=== PATIENT | female | born 1970 | race Caucasian/White ===

== ENCOUNTER 2016-02-15 14:59 | Emergency (ER) | payer MEDICAID ==
[~2016-02-15] VITALS: Ht 157.5 cm; Wt 69.5 kg
[~2016-02-15 14:59] MED LIST: AMO500 PO; D-ME118S6 PO; PHEN-530 PO
[2016-02-15 15:42] VITALS: Ht 157.5 cm; Wt 69.5 kg
--- NOTE | 2016-02-15 16:40 | ERD ---
ER Documentation Chief Complaint Date/Time DATE: 02/15/16 Chief Complaint Ear pain HPI The patient is a 45-year-old female who presents to the Emergency Department with complaint of bilateral ear pain. She reports that her symptoms began 2.5 weeks ago, with onset of right-sided ear pain, mild rhinorrhea, body aches, subjective tactile fevers, sore throat and increased eye lacrimation. Since, her fevers, body aches and sore throat have improved. However, she continues to experience right-sided ear pain, rhinorrhea and increased eye lacrimation. Two days ago, the patient also developed left ear pain. She denies any cough. Denies otorrhea or bloody discharge. Denies any pain to the external ear. Denies any large water exposure. Denies any change in hearing or dizziness. Denies neck pain/neck stiffness. Denies new rashes. Denies any sick contacts. The patient does state that she has had similar symptoms in the past, which resolved after taking antibiotics. ROS All systems reviewed and are negative except as per history of present illness. Medications Home Meds Active Scripts Loratadine* (Loratadine*) 10 Mg Tablet, 10 MG PO DAILY, #30 TAB Prov:ESTELA BOWEN PA-C 02/15/16 Ibuprofen* (Motrin*) 600 Mg Tab, 600 MG PO Q6, #30 TAB Prov:ESTELA BOWEN PA-C 02/15/16 Amoxicillin* (Amoxicillin*) 500 Mg Cap, 500 MG PO BID, #20 CAP Prov:ESTELA BOWEN PA-C 02/15/16 Amoxicillin* (Amoxicillin*) 500 Mg Cap, 500 MG PO TID for 7 Days, CAP Prov:JANE AGUILAR PA-C 12/27/15 Phenylephrine/Dm/Acetaminop/GG (Sudafed PE Pressure+Pain+Cold) 1 Each Tablet, 1 EACH PO BID, #10 TAB Prov:DAXA KIRK NP 01/18/15 Dextromethorphan Hb-Promethazine Hcl (Promethazine DM Syrup) 180 Ml Syrup, 5 ML PO Q6H Y for COUGH, #4 OZ Prov:ADRIA GALVEZ 11/03/14 Allergies Allergies: Coded Allergies: No Known Allergy (Unverified , 12/27/15) PMhx/Soc Hx Alcohol Use: No Hx Substance Use: No Hx Tobacco Use: No Physical Exam Vitals Vital Signs Date Time Temp Pulse Resp B/P Pulse Ox O2 Delivery O2 Flow Rate FiO2 02/15/16 15:42 98.2 90 16 160/80 99 Physical Exam GENERAL: Well-developed, well-nourished, in no acute distress HEENT: Head is normocephalic, atraumatic. No scleral pallor or icterus. Pupils equal, round and reactive to light. Extraocular movements intact. Conjunctiva pink. Nares are patent bilaterally. Right tympanic membrane is erythematous, with dulling of the light reflex, and mildly bulging. Left tympanic membrane is clear, with dulling of the light reflex, but no significant erythema, no effusion. No tenderness to palpation or manipulation of the tragus or pinna. No foreign bodies. No mastoid or preauricular tenderness. No otorrhea or bloody discharge. Moist mucous membranes. No pharyngeal erythema or exudates. NECK: Supple. No masses, no tenderness, no lymphadenopathy. Full range of motion. No nuchal rigidity. RESPIRATORY: Lungs are clear to auscultation bilaterally. CARDIOVASCULAR: Regular rate and rhythm. S1 and S2 normal. EXTREMITIES: No clubbing, cyanosis, or edema. Distal pulses are palpable, 2+ bilaterally. Capillary refill is less than 2 seconds. MUSCULOSKELETAL: No injury or deformities. NEUROLOGIC: The patient is alert, awake, and oriented x 3. No focal neurologic deficits. Gait is observed and normal. INTEGUMENT: Skin is clean, dry and intact. PSYCHIATRIC: Appropriate; Cooperative. Procedures/MDM This is a 45-year-old female presenting to the Emergency Department with complaint of bilateral ear pain. On physical examination, the patients right tympanic membrane was erythematous and bulging. Left tympanic membrane was noted to have dulling of the light reflex, though with no erythema or effusion. She had no mastoid tenderness, no preauricular tenderness. Hearing is grossly intact. No otorrhea or bloody discharge. No tenderness to palpation or manipulation of tragus or pinna. No foreign bodies were noted. The differential diagnosis includes, but is not limited to, otitis media, otitis externa, ear foreign body, cerumen impaction, ruptured tympanic membrane, sinusitis, URI, tinnitus, mastoiditis, viral syndrome, cholesteatoma, auditory tube dysfunction, osteoma, referred pain, trauma, bullous myringitis, Tyronza- Dean syndrome. After rest, the patient has no new complaints. Upon my review and interpretation of the patient's presentation and overall ER course, I believe the patient's symptoms are most consistent with acute right otitis media, and left otalgia without evidence of infection. At this time, the patient is in stable condition and therefore can be discharged home with a prescription for Amoxicillin, ibuprofen and Loratadine, and strict return precautions for signs of deteriorating or worsening condition. The patient is instructed to follow up with her primary medical provider and an ENT specialist within 2-3 days for reevaluation and further management or to return to the ER sooner for any new or worsening symptoms. Given that the patient has had multiple ear infections over the past several years, ENT referrals were provided. I shared my medical decision making and plan with the patient at length and in great detail, and she verbally understands and agrees with the plan for further observation and care as an outpatient. At the time of discharge, all questions were answered. Departure Diagnosis: Primary Impression: Acute right otitis media Additional Impression: Otalgia of both ears Condition: Stable Patient Instructions: Anatomy of the Ear, Anatomy of the Inner Ear, Earache W/ O Infection (Adult), Otitis Media, Abx Tx (Adult) Referrals: BINDU CASTANON MD, STEPHEN H MD Additional Instructions: Follow up with your primary medical provider and an ENT specialist within 2-3 days for reevaluation and further management. Return to the ED sooner for any new or worsening symptoms. ESTELA BOWEN PA-C Feb 15, 2016 16:39
[2016-02-15] MEDS ORDERED: IBUP-1542 PO (16:43)
[2016-02-15] MEDS ORDERED: AMO500 PO (16:43)
[2016-02-15] MEDS ORDERED: LORA10TA3 PO (16:44)
== END 2016-02-16 09:28 | disposition home or self-care (01) ==
LOC: FTE 14:59 → E/R 02-16 09:28
DX: H66.91 Otitis media, unspecified, right ear (principal)
CPT/HCPCS: 99283

== ENCOUNTER 2016-04-03 09:59 | Emergency (ER) | payer MEDICAID ==
[~2016-04-03] VITALS: Wt 67.8 kg
[~2016-04-03 09:59] MED LIST changes: +IBUP-1542 PO; +LORA10TA3 PO
--- NOTE | 2016-04-03 11:59 | RADRPT ---
PROCEDURE: CT Brain without. CLINICAL INDICATION: Headache, left facial palsy. TECHNIQUE: A CT of the brain was performed on multidetector high-resolution CT scanner utilizing a xial sections from the skull base through the vertex without contrast. The scan was reviewed in sof t tissue brain and high frequency resolution bone algorithm windows. Images were reviewed on a high -resolution PACS workstation. One or more the following does reduction techniques were utilized: Aut omated exposure control, adjustment of the mA/ or kV according to patient's size, or use of iterativ e reconstruction technique. The exam CTDI and the DLP are not provided. COMPARISON: None available. FINDINGS: The ventricles and sulci are minimally prominent indicative of volume loss. There is no intracrania l hemorrhage, mass effect or midline shift. No abnormal intra-axial or extra-axial fluid collection s are seen. The oswald/white matter differentiation is preserved. Hyperostosis frontalis interna is no enzo. The visualized paranasal sinuses are essentially clear. IMPRESSION: 1. No acute intracranial hemorrhage, transcortical infarction or mass effect. Brain MRI can be obta ined if clinical concern persists. 2. Minimal generalized cerebral volume loss. RPTAT: HH .Eric Alvarado MD, Date Time Electronically viewed and signed by .Eric Alvarado MD, MD on 04/03/2016 11:58 .N/
[2016-04-03] MEDS ORDERED: DIPHENHYDRAMINE 50 MG INJ IV ONE (13:00)
[2016-04-03] MEDS ORDERED: SOD CHLORIDE 0.9% 1,000 ML IV ONE (13:00)
[2016-04-03] MEDS ORDERED: METOCLOPRAMIDE 10 MG INJ IV ONE (13:00)
--- NOTE | 2016-04-03 17:02 | RADRPT ---
PROCEDURE: MRI Brain without contrast. CLINICAL INDICATION: Headaches, left facial palsy TECHNIQUE: Multiplanar MRI of the brain without contrast was performed on a 3.0 T scanner with the following sequences obtained: T1-weighted, T2-weighted/FLAIR, diffusion weighted (with ADC map), GR E. COMPARISON: CT brain 04/03/2016 FINDINGS: No acute/recent ischemic infarction or intracranial hemorrhage / blood degradation products are iden tified. No extra-axial fluid collection is seen. There is no mass effect. No midline shift is identified. The ventricles and sulci are within normal limits for size and configuration. A few punctate foci of increased T2-weighted FLAIR signal intensity are identified in the deep white matter which are nonspecific, which may reflect chronic small vessel ischemic changes or possibly s equela of complicated migraines. There is a focal homogeneous intermediate T1-weighted, decreased T2-weighted signal intensity lesion in the left aspect of the sella which may extend slightly into the left suprasellar cistern measuri ng approximately 7 x 13 x 10 mm (AP x transverse x CC). No associated fluid fluid level is seen. Flow voids are identified in the proximal intracranial arteries and dural sinuses suggesting patency . The mastoid air cells and paranasal sinuses are grossly clear. IMPRESSION: 1. No evidence of acute intracranial pathology. 2. Minimal nonspecific white matter changes, which may reflect chronic small vessel ischemic change s, possibly sequela of complicated migraines. 3. 13 mm intermediate T1-weighted/decreased T2-weighted signal intensity lesion in the left sella w hich may extend slightly into the suprasellar cistern. Considerations include Rathke cleft cyst, le ss likely hemorrhagic pituitary adenoma, but further characterization could be performed with follow -up dedicated contrast-enhanced MRI of the pituitary. RPTAT: TT .Amari Del Rosario MD, MD Date Time Electronically viewed and signed by .Amari Del Rosario MD, MD on 04/03/2016 17:01 .O/
[2016-04-03 18:37] LABS: BASOPHIL # 0.1 10^3/ul (0.0-0.1); BASOPHILS % 0.8 % (0.0-2.0); EOSINOPHILS % 0.1 % (0.0-7.0); HEMATOCRIT 41.9 % (37.0-47.0); HEMOGLOBIN 14.2 g/dl (12.0-16.0); LYMPHOCYTES # 3.4 10^3/ul (0.8-2.9); LYMPHOCYTES % 21.8 % (15.0-51.0); MEAN CORPUSCULAR HEMOGLOBIN 31.3 pg (29.0-33.0); MEAN CORPUSCULAR HGB CONC 33.9 g/dl (32.0-37.0); MEAN CORPUSCULAR VOLUME 92.4 fl (82.0-101.0); MEAN PLATELET VOLUME 9.1 fl (7.4-10.4); MONOCYTE # 0.8 10^3/ul (0.3-0.9); MONOCYTES % 4.9 % (0.0-11.0); NEUTROPHIL # 11.2 10^3/ul (1.6-7.5); NEUTROPHILS % 72.4 % (39.0-77.0); PLATELET COUNT 246 10^3/UL (140-440); RED BLOOD COUNT 4.54 10^6/ul (4.20-5.40); UNCORRECTED WBC 15.4 10^3/ul (4.8-10.8); WHITE BLOOD COUNT 15.4 10^3/ul (4.8-10.8)
[2016-04-03 18:42] LABS: CONDITION 1
[2016-04-03 18:47] LABS: INR 0.99; PROTIME 13.1 Sec (12.2-14.2)
[2016-04-03 18:48] LABS: PARTIAL THROMBOPLASTIN TIME 22.7 Sec (25.0-35.0)
[2016-04-03 18:57] LABS: POTASSIUM 3.3 mmol/L (3.5-5.1)
[2016-04-03 18:59] LABS: CREATININE 0.7 mg/dl (0.44-1.00)
[2016-04-03 19:00] LABS: CALCIUM 8.7 mg/dl (8.4-10.2)
--- NOTE | 2016-04-03 19:47 | ERD ---
ER Documentation Chief Complaint Date/Time DATE: 04/03/16 TIME: 19:34 Chief Complaint non traumatic headache no fever since 5 days.L side facial palsy, on meds HPI A 45-year-old female with a past medical history of hypertension presents to the ED complaining of positional dizziness that led to a headache that started 5 days ago. States that she went to the [facility] and Dr. Bentley diagnosed patient with a left-sided Coffey's palsy. Patient reports that she has been taking acyclovir, methylprednisolone, diclofenac, artificial tears without relief of her symptoms. Reports that her headache is mainly in the frontal region and radiates to the back. Rates the pain a 8 out of 10. Describes it as achy. States that the pain is worse at night. Reports that the pain is exacerbated when she bends forward. Denies any facial pain. Denies any sinus pain. Denies any photophobia, blurred vision, photophobia, weakness, abdominal pain, nausea, vomiting, chest pain, shortness of breath. Reports that her last menses was on March 27, 2016. ROS All systems reviewed and are negative except as per history of present illness. Medications Home Meds Active Scripts Loratadine* (Loratadine*) 10 Mg Tablet, 10 MG PO DAILY, #30 TAB Prov:ESTELA BOWEN PA-C 02/15/16 Ibuprofen* (Motrin*) 600 Mg Tab, 600 MG PO Q6, #30 TAB Prov:ESTELA BOWEN PA-C 02/15/16 Amoxicillin* (Amoxicillin*) 500 Mg Cap, 500 MG PO BID, #20 CAP Prov:ESTELA BOWEN PA-C 02/15/16 Amoxicillin* (Amoxicillin*) 500 Mg Cap, 500 MG PO TID for 7 Days, CAP Prov:JANE AGUILAR PA-C 12/27/15 Phenylephrine/Dm/Acetaminop/GG (Sudafed PE Pressure+Pain+Cold) 1 Each Tablet, 1 EACH PO BID, #10 TAB Prov:DAXA KIRK NP 01/18/15 Dextromethorphan Hb-Promethazine Hcl (Promethazine DM Syrup) 180 Ml Syrup, 5 ML PO Q6H Y for COUGH, #4 OZ Prov:ADRIA GALVEZ 11/03/14 Allergies Allergies: Coded Allergies: No Known Allergy (Unverified , 12/27/15) PMhx/Soc History of Surgery: No Anesthesia Reaction: No Hx Neurological Disorder: No Hx Respiratory Disorders: No Hx Cardiac Disorders: No Hx Psychiatric Problems: No Hx Miscellaneous Medical Probl: Yes (HTN) Hx Alcohol Use: No Hx Substance Use: No Hx Tobacco Use: No Smoking Status: Never smoker Physical Exam Vitals Vital Signs Date Time Temp Pulse Resp B/P Pulse Ox O2 Delivery O2 Flow Rate FiO2 04/03/16 10:02 98.9 76 20 166/75 99 Physical Exam Const: Kna-vwj-fwhynjojv, well-nourished. In no acute distress. Head: Atraumatic, normocephalic Eyes: Normal Conjunctiva without injection. No purulent discharge. PERRLA. EOMI ENT: Normal external ear. Ear canal without erythema. Tympanic membrane pearly oswald without effusion or bulging. Nasal canal clear with normal turbinates. Moist oropharynx without tonsillar exudates. Non-erythematous pharynx. Uvula midline. No drooling. No trismus. Neck: No cervical midline tenderness. Full range of motion. No meningismus. No cervical lymphadenopathy. No JVD. Resp: Clear to auscultation bilaterally. No wheezing, rhonchi, rales, or crackles. No accessory muscle use. No retractions. Cardio: Regular rate and rhythm. No murmurs, rubs or gallops. Abd: Soft, non tender, non distended. Normal bowel sounds. No palpable masses. No rebound tenderness. No guarding. Negative McBurney's Point. Negative Harrell's Sign. Skin: Normal skin turgor. No petechiae or rashes Back: No midline tenderness. No CVA tenderness. Ext: No cyanosis, or edema. Distal pulses intact bilaterally. Neur: Awake and alert. Normal gait. Normal coordination. Cranial Nerves II- VII intact. Normal finger to nose. Muscle strength 5/5. Sensation intact. Psych: Normal Mood and Affect Result Diagram: 04/03/16182904/03/161829 Results 24 hrs Laboratory Tests Test 04/03/16 18:30 Activated Partial Thromboplast Time 22.7Sec Anion Gap 16 Basophils # 0.110^3/ul Basophils % 0.8% Blood Urea Nitrogen 12mg/dl Calcium Level 8.7mg/dl Carbon Dioxide Level 27mmol/L Chloride Level 103mmol/L Creatinine 0.70mg/dl Eosinophils # 0.010^3/ul Eosinophils % 0.1% Glucose Level 140mg/dl Hematocrit 41.9% Hemoglobin 14.2g/dl INR International Normalized Ratio 0.99 Lymphocytes # 3.410^3/ul Lymphocytes % 21.8% Mean Corpuscular Hemoglobin 31.3pg Mean Corpuscular Hemoglobin Concent 33.9g/dl Mean Corpuscular Volume 92.4fl Mean Platelet Volume 9.1fl Monocytes # 0.810^3/ul Monocytes % 4.9% Neutrophils # 11.210^3/ul Neutrophils % 72.4% Nucleated Red Blood Cells # 0.010^3/ul Nucleated Red Blood Cells % 0.0/100WBC Platelet Count 63860^3/UL Potassium Level 3.3mmol/L Prothrombin Time 13.1Sec Prothrombin Time Ratio 1.0 Red Blood Count 4.5410^6/ul Red Cell Distribution Width 14.0% Sodium Level 143mmol/L White Blood Count 15.410^3/ul Current Medications Medications (Trade) Dose Ordered Sig/Alessandra Route PRN Reason Start Time Stop Time Status Last Admin Dose Admin Sodium Chloride (NS) 1,000 ml @ 1,000 mls/hr Q1H ONCE IV 04/03/16 13:00 04/03/16 13:59 DC 04/03/16 13:22 Metoclopramide HCl (Reglan) 10 mg ONCE ONCE IV 04/03/16 13:00 04/03/16 13:01 DC 04/03/16 13:22 Diphenhydramine HCl (Benadryl) 25 mg ONCE ONCE IV 04/03/16 13:00 04/03/16 13:01 DC 04/03/16 13:22 Procedures/MDM 45-year-old female with no significant past medical history presents to the ED complaining of a headache that started 5 days ago. Patient is afebrile and nontoxic-appearing. Patient was treated here in the ED with 1 L of normal saline, Benadryl, Reglan with relief of her headache. Since patient has slight lowering of the left side of her mouth, was able to wrinkle her forehead as well as raise her eyebrow, a CT of the brain without contrast was ordered to further evaluate patient to rule out a stroke at this time. PROCEDURE: CT Brain without. CLINICAL INDICATION: Headache, left facial palsy. TECHNIQUE: A CT of the brain was performed on multidetector high-resolution CT scanner utilizing axial sections from the skull base through the vertex without contrast. The scan was reviewed in soft tissue brain and high frequency resolution bone algorithm windows. Images were reviewed on a high- resolution PACS workstation. One or more the following does reduction techniques were utilized: Automated exposure control, adjustment of the mA/ or kV according to patient's size, or use of iterative reconstruction technique. The exam CTDI and the DLP are not provided. COMPARISON: None available. FINDINGS: The ventricles and sulci are minimally prominent indicative of volume loss. There is no intracranial hemorrhage, mass effect or midline shift. No abnormal intra-axial or extra-axial fluid collections are seen. The oswald/white matter differentiation is preserved. Hyperostosis frontalis interna is noted. The visualized paranasal sinuses are essentially clear. IMPRESSION: 1. No acute intracranial hemorrhage, transcortical infarction or mass effect. Brain MRI can be obtained if clinical concern persists. 2. Minimal generalized cerebral volume loss. PROCEDURE: MRI Brain without contrast. CLINICAL INDICATION: Headaches, left facial palsy TECHNIQUE: Multiplanar MRI of the brain without contrast was performed on a 3.0 T scanner with the following sequences obtained: T1-weighted, T2-weighted/ FLAIR, diffusion weighted (with ADC map), GRE. COMPARISON: CT brain 04/03/2016 FINDINGS: No acute/recent ischemic infarction or intracranial hemorrhage / blood degradation products are identified. No extra-axial fluid collection is seen. There is no mass effect. No midline shift is identified. The ventricles and sulci are within normal limits for size and configuration. A few punctate foci of increased T2-weighted FLAIR signal intensity are identified in the deep white matter which are nonspecific, which may reflect chronic small vessel ischemic changes or possibly sequela of complicated migraines. There is a focal homogeneous intermediate T1-weighted, decreased T2-weighted signal intensity lesion in the left aspect of the sella which may extend slightly into the left suprasellar cistern measuring approximately 7 x 13 x 10 mm (AP x transverse x CC). No associated fluid fluid level is seen. Flow voids are identified in the proximal intracranial arteries and dural sinuses suggesting patency. The mastoid air cells and paranasal sinuses are grossly clear. IMPRESSION: 1. No evidence of acute intracranial pathology. 2. Minimal nonspecific white matter changes, which may reflect chronic small vessel ischemic changes, possibly sequela of complicated migraines. 3. 13 mm intermediate T1-weighted/decreased T2-weighted signal intensity lesion in the left sella which may extend slightly into the suprasellar cistern. Considerations include Rathke cleft cyst, less likely hemorrhagic pituitary adenoma, but further characterization could be performed with follow- up dedicated contrast-enhanced MRI of the pituitary. CT of the brain without contrast recommended for a brain MRI to rule out a stroke that is unable to be seen on the CT of the brain without contrast. This case was discussed with my supervising physician, Dr. garduno who recommended to obtain a MRI without contrast at this time. The MRI of the brain showed patient 's symptoms could be possibly due to migraines however there is a 13 mm lesion noted in the left sella that could be possibly ran cleft cyst or a hemorrhagic pituitary adenoma that will be further evaluated with a MRI with contrast. The MRI of the brain without contrast was discussed with my other supervising physician, Dr. Marcial who recommended a CBC, BMP, PT, PTT was also ordered to further evaluate patient so she can receive contrast with her MRI at this time. The MRI with contrast will rule out a hemorrhagic pituitary adenoma. No evidence of a stroke or TIA on the CT at this time. Low suspicion for acute myocardial infarction, pneumothorax, pneumonia, cardiac tamponade, pulmonary embolism, pleural effusion, AAA, aortic dissection, Boerhaave's syndrome, cardiac dysrhythmias, meningitis, seizure, or other emergent conditions. This patient has been signed out to my colleague Lee Huang PA-C pending the results of the MRI of the brain with contrast. Departure Diagnosis: Primary Impression: Headache Headache type: unspecified Headache chronicity pattern: acute headache Intractability: not intractable Qualified Code: R51 - Acute nonintractable headache, unspecified headache type Condition: Stable Patient Instructions: Headache, Unspecified Referrals: [facility] YOU HAVE RECEIVED A MEDICAL SCREENING EXAM AND THE RESULTS INDICATE THAT YOU DO NOT HAVE A CONDITION THAT REQUIRES URGENT TREATMENT IN THE EMERGENCY DEPARTMENT. FURTHER EVALUATION AND TREATMENT OF YOUR CONDITION CAN WAIT UNTIL YOU ARE SEEN IN YOUR DOCTORS OFFICE WITHIN THE NEXT 1-2 DAYS. IT IS YOUR RESPONSIBILITY TO MAKE AN APPOINTMENT FOR FOLOW-UP CARE. IF YOU HAVE A PRIMARY DOCTOR --you should call your primary doctor and schedule an appointment IF YOU DO NOT HAVE A PRIMARY DOCTOR YOU CAN CALL OUR PHYSICIAN REFERRAL HOTLINE AT IF YOU CAN NOT AFFORD TO SEE A PHYSICIAN YOU CAN CHOSE FROM THE FOLLOWING [facility] [address] [facility] [address] [facility] [address] [facility] [address] [facility] [address] [facility] [address] [facility]. [facility] YOU HAVE RECEIVED A MEDICAL SCREENING EXAM AND THE RESULTS INDICATE THAT YOU DO NOT HAVE A CONDITION THAT REQUIRES URGENT TREATMENT IN THE EMERGENCY DEPARTMENT. FURTHER EVALUATION AND TREATMENT OF YOUR CONDITION CAN WAIT UNTIL YOU ARE SEEN IN YOUR DOCTORS OFFICE WITHIN THE NEXT 1-2 DAYS. IT IS YOUR RESPONSIBILITY TO MAKE AN APPOINTMENT FOR FOLOW-UP CARE. IF YOU HAVE A PRIMARY DOCTOR --you should call your primary doctor and schedule and appointment IF YOU DO NOT HAVE A PRIMARY DOCTOR YOU CAN CALL OUR PHYSICIAN REFERRAL HOTLINE AT . IF YOU CAN NOT AFFORD TO SEE A PHYSICIAN YOU CAN CHOSE FROM THE FOLLOWING [facility]: [facility] [address] [place] [address] [facility] [address] [place] [address] [facility] [address] [place] [address] [facility] URGENT CARE/SPECIALTIES Additional Instructions: Visite a iglesias shira mckeon para un EXAMEN.Regrese a estas instalaciones si no se mejora yayo esperbamos o yayo le nelsons. FERN PERSAUD PA-C Apr 03, 2016 19:46
[2016-04-03 19:55] VITALS: BP 178/93; PULSE 68; TEMP 98.2
--- NOTE | 2016-04-03 20:14 | RADRPT ---
PROCEDURE: MRI Head with intravenous gadolinium CLINICAL INDICATION: Headache TECHNIQUE: Multiplanar multi sequence imaging was obtained through the head following intravenous gadolinium administration. COMPARISON: Left facial palsy, and 13 mm lesions seen on previous noncontrast MRI FINDINGS: The ventricles are normal in size and there is no midline shift. There is been no significant interval change to the 1.2 by 1.1 x 0.8 cm mass seen within the left la teral sella which appears to bulge into the left cavernous sinus. No significant post gadolinium en hancement evident. No other mass, no intracranial bleed and no extra-axial fluid collection is evid ent. The brainstem appears unremarkable. Normal enhancement is seen within the central cerebral vasculature and within the dural sinuses and deep veins. The visualized osseous elements appear unremarkable. The orbits and orbital contents appear unremarkable. The paranasal sinuses and mastoid air cells are well-aerated. IMPRESSION: 1. 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 A pituitary adenoma is less likely. 2. The mass bulges into the left cavernous sinus but the left carotid artery remains patent. 3. Otherwise, stable and unremarkable MRI of the brain. Physician Joy Date Time Electronically viewed and signed by Physician Joy on 04/03/2016 20:13 /
[2016-04-03] MEDS ORDERED: FIORICET PO (20:46)
== END 2016-04-03 21:07 | disposition home or self-care (01) ==
LOC: FTE 09:59
DX: R51 Headache (principal); I10 Essential (primary) hypertension
CPT/HCPCS: 70450; 70551; 70552; 80048; 85025; 85610; 85730; 96361; 96374; 96375; J1200; J2765; J7030; Z7502

== ENCOUNTER 2017-03-24 08:59 | Emergency (ER) | END 2017-03-24 10:30 | disposition home or self-care (01) ==